=== PATIENT | female | born 1985 | race Caucasian/White ===

== ENCOUNTER 2020-06-30 18:08 | Emergency (ER) | payer BC, SELFPAY ==
--- NOTE | 2020-06-30 18:24 | ED.GENADULT ---
HPI - General Adult General Chief complaint: Upper Respiratory Infection Stated complaint: sore throat Time Seen by Provider: 06/30/20 18:24 Source: patient Mode of arrival: ambulatory Limitations: no limitations History of Present Illness HPI narrative: 34-year-old female patient presents to the [facility] with complaints of a sore throat that started this morning. Patient states that she is prone to strep and went to get a strep test today. Denies any fevers, body aches or chills. Denies any ear pain, runny nose or congestion. Denies any cough, chest pain or shortness of breath. Denies any abdominal pain, nausea, vomiting or diarrhea. Patient states she has been taking some [id number] Tylenol Cold and flu medication along with some cough drops. Related Data Home Medications Medication Instructions Recorded Confirmed norgestimate-ethinyl estradiol 1 tablet PO DAILY 06/30/20 06/30/20 [Tri-Sprintec (28)] Allergies Allergy/AdvReac Type Severity Reaction Status Date / Time Sulfa (Sulfonamide Allergy Mild HIVES Verified 06/30/20 18:22 Antibiotics) Review of Systems Review of Systems: Narrative: CONSTITUTIONAL: Denies fever, chills, or sweats. EYES: Denies visual changes, redness, or discharge. ENT: Denies rhinorrhea, congestion, positive sore throat, denies otalgia. CARDIOVASCULAR: Denies chest pain, palpitations, or edema. RESPIRATORY: Denies cough or dyspnea. GASTROINTESTINAL: Denies abdominal pain, nausea, vomiting, or diarrhea. GENITOURINARY: Denies dysuria or hematuria. SKIN: Denies rash or itching. MUSCULOSKELETAL: Denies back pain, joint pain, or myalgia. NEUROLOGIC: Denies headache, numbness, or weakness. PSYCHIATRIC: Denies anxiety or depression. PMFSH Past Medical History Medical History (Updated 06/30/20 @ 18:41 by SHARITA Herrera) Anxiety Migraines Ovarian cyst Surgical History Surgical History (Updated 06/30/20 @ 18:25 by SHARITA Herrera) Hx of tonsillectomy Comments At the time of my signature I agree with nursing past medical history, surgical, social, and family history. There is no relevant family history pertinent to the presenting complaint. Exam Narrative: Exam Narrative: GENERAL: Well-appearing, well-nourished, and in no acute distress. HEAD: Normocephalic, atraumatic. EYES: PERRLA and EOMI. ENT: Nares clear, no rhinorrhea or epistaxis. Mucous membranes moist. Bilateral TMs do appear little injected but no foreign body to the canal or erythema. Posterior pharynx with a little bit of erythema, no tonsils present. NECK: Supple. No lymphadenopathy CHEST: Clear to auscultation. No respiratory distress. HEART: Regular rate and rhythm. No murmur heard. Normal peripheral pulses. ABDOMEN: Soft, nontender, nondistended, normal active bowel sounds. EXTREMITIES: Normal range of motion. No edema. SKIN: Warm, dry, no rash. NEURO: No focal deficits. Alert and oriented x3. Course Reevaluation(s) Reevaluation #1: Reevaluated patient after her swabs have come back. Notified her that she is negative for strep and flu today. Discussed with her that we will send her throat swab off to the lab for a culture and if it does come back positive in the next day or 2 we will call her and place her on antibiotics at that time. Offered to send patient for Covid testing however she is declined at this time states that she would like to just wait for her strep culture to come back because she gets strep often and usually does not, with the rapid test but is positive for the culture. Notified her that it is possible to have a congruent strep and Covid infection however patient continues to decline for Covid testing at this time. Date: 06/30/20 Time: 18:40 Vital Signs Vital signs: Vital Signs Temperature 36.6 C 06/30/20 18:28 Pulse Rate 74 06/30/20 18:28 Respiratory Rate 20 06/30/20 18:28 Blood Pressure 154/87 H 06/30/20 18:28 Pulse Oximetry 100 06/30/20 18:28 Tem
[2020-06-30 18:28] VITALS: BP 154/87; PULSE 74; RESP 20; TEMP 36.6; O2SAT 100
== END 2020-06-30 18:46 | disposition home or self-care (01) ==
PROVIDERS: Emergency Provider Nurse Practitioner Family; PCP Internal Medicine
DX: J02.9 Acute pharyngitis, unspecified (principal)
CPT/HCPCS: 87081; 87804; 87880; 99213; G0463